=== PATIENT | female | born 1965 | race Caucasian/White ===

== ENCOUNTER 2017-05-23 15:55 | Emergency (ER) | payer OTHER ==
--- NOTE | ~2017-05-23 | CT4 ---
[facility] A Service of [facility] & [facility] RADIOLOGY TEXT RESULTS PATIENT: BARTOLOME FLYNN LOCATION: [facility] : 65 UNIT #: [id number] AGE: [address]: Chad Willett MD SEX: F ORDER DR: [id number] [facility] [address] [place], [place] [address] [id number] MR#: [id number] Acc #: [id number] NAME: BARTOLOME FLYNN : 1965 SEX: F STUDY DATE/TIME: 05/23/2017 18:15 UNIT: [facility] ROOM: STUDY DESCRIPTION: CT Abd and Pelv Wo Cont Attending Physician: Chad Willett M.D. Ordering Physician: Chad Willett M.D. Primary Care Physician: Juanita Barnhart M.D. MEDICAL IMAGING REPORT This report is preliminary unless electronic signature is present EXAM Abdomen and pelvis CT scan without contrast HISTORY Nausea and severe low back pain that wraps around to the anterior abdomen and pelvis on the left side for 3 days. History of irritable bowel syndrome and acid reflux. No history of cancer or trauma. Patient has had appendectomy, hysterectomy, cholecystectomy and left inguinal hernia repair. COMMENTS CT abdomen and pelvis performed without IV or oral contrast media using a urinary tract stone protocol. The lack of intravenous oral contrast media limits evaluation for pathology other than urinary tract calculus disease. There is a previous study from [address] exam was performed with one or more of the following radiation dose reduction techniques: automatic control, adjustment of mA and/or kV according to patient size, and iterative reconstruction. Patchy airspace disease noted at lung bases. The vasculature is crowded and enlarged. Cardiac silhouette is probably mildly enlarged where visualized and this represents a change from the prior study of 02/07/2015 and raises concern for some mild congestive failure or cardiac dysfunction. The airspace disease could simply be atelectasis but a component of patchy pulmonary edema is in the differential and clinical correlation and follow up is recommended. CT ABDOMEN: The noncontrast liver shows diffuse fatty infiltration. The patient is post cholecystectomy. There is some fatty replacement in the pancreas. The spleen, adrenal glands, and left kidney are unremarkable. There is no left-sided hydronephrosis. There is a nonobstructing calculus in the right lower pole kidney about 3-4 mm in dimension. There is no STS. [facility] A Service of [facility] & [facility] RADIOLOGY TEXT RESULTS PATIENT: BARTOLOME FLYNN LOCATION: [facility] : 65 UNIT #: [id number] AGE: [address]: Chad Willett MD SEX: F ORDER DR: right-sided hydronephrosis. No left ureteral calculus or right ureteral calculus is seen. The bladder is decompressed and no bladder calculus is seen. Assessment remainder of the pelvis shows patient post hysterectomy. There are occasional colonic diverticula but there is nothing to suggest diverticulitis. There is some postoperative changes in the left inguinal region consistent with hernia repair history including some dense structures presumably postoperative in origin the appendix is not seen and is surgically absent by history. The small bowel is unremarkable and there is no evidence for obstruction. No free air is identified and no drainable fluid collection is suspected. Mild degenerative changes noted in the spine. IMPRESSION 1. Diffuse fatty infiltration of the liver. 2. Partial demonstration of findings at lung bases raise concern for cardiac dysfunction/mild congestive failure. See discussion above and clinical correlation and follow up is recommended. 3. This patient is post appendectomy, cholecystectomy and hysterectomy and left inguinal hernia repair and there are some densities in the left inguinal region consistent with a hernia repair. 4. There are a few left colon diverticula but there is nothing to suggest diverticulitis. There is no evidence for bowel obstruction. 5. There is a nonobstructing calculus right lower pole kidney. No obstructing calculus is seen and there is no evidence for hydronephrosis. Specifically no left ureteral calculus is seen and no bladder calculus is seen. STAT * RESULT L Dictated by... Judith Pierre M.D. THIS IS AN ELECTRONICALLY VERIFIED REPORT Judith Pierre M.D. at 05/23/2017 10:51 PM SAVANNA/rashmi TD: 05/23/2017 18:54 JOB #: [id number] MEDICAL IMAGING REPORT Page 1 of 1 COPY
[~2017-05-23 15:55] MED LIST: ASPIRIN81 M1 PO; B-12 PO; BACLOFEN10 MG PO; CLINDAMYCIN HC300 MG PO; CYMBALTA PO; DAZIDOX20 MG PO; DIOVAN HCT 320/1 TA2 PO; DIOVAN PO; DIOVAN320 MG PO; EFFEXOR-XR150 MG PO; FLEXERIL PO; FLEXERIL10 M1 PO; GRALISE300 MG PO; LIPITOR20 MG PO; LISINOPRIL20 MG PO; LORTAB 7.5-5001 TAB PO; MACROBID 100 M100 MG PO; MAXALT MLT10 MG/TAB PO; MEDROL DOSEPAK4 MG PO; MEDROL4 MG/DOSE- PO; MIRALAX17 GM PO; NAPROSYN500 MG PO; NEURONTIN300 MG PO; NEURONTIN600 MG PO; NITROFURANTOIN100 M3 PO; NORCO 5/325 TAB1 TAB PO; NORVASC PO; OXYCODONE HCL E15 MG PO; OXYCODONE15 M1 PO; OXYCONTIN30 MG PO; OXYCONTIN40 MG PO; PAMELOR10 M1 PO; PAROXETINE HCL20 MG PO; PERCOCET 10/3251 TAB PO; PERCOCET PO; PHENERGAN PO; PHENERGAN25 MG PO; PREDNISONE50 MG PO; PREVACID PO; PRILOSEC PO; PRILOSEC40 MG PO; PROTONIX PO; RELAFEN500 MG PO; SAVELLA100 MG PO; SAVELLA50 MG PO; SENNA S TABLET1 TAB PO; SIMVASTATIN10 MG PO; TREXIMET 85-5001 TAB PO; TYLOX 5/500 CAP1 CAP PO; ULTRAM PO; VANCOMYCIN HCL1 GM IM; VICOPROFEN 200-1 TAB PO; VITAL-D RX TABL1 TAB PO; VITAMIN B-121000 MC2 PO; VITAMIN B-12500 MCG PO; VITAMIN D2000 UNI1 PO; WELCHOL625 MG PO; ZOFRAN ODT4 MG PO; ZOFRAN PO; ZOFRANODT PO
[2017-05-23 16:30] LABS: URINE SOURCE CLEAN CATCH
[2017-05-23 16:38] LABS: URINE APPEARANCE CLEAR; URINE BILIRUBIN NEG (NEG); URINE BLOOD NEG (NEG); URINE COLOR YELLOW; URINE GLUCOSE NEG (NEG); URINE KETONE NEG (NEG); URINE LEUKOCYTE ESTERASE NEG (NEG); URINE NITRATE NEG (NEG); URINE PROTEIN NEG (NEG); URINE SPECIFIC GRAVITY 1.024 (1.003-1.035); URINE UROBILINOGEN 0.2 MG/DL (NEG)
[2017-05-23 16:48] LABS: CULTURE INDICATED? NO
[2017-05-23 17:28] LABS: BASOPHIL% 0.6 % (0-2.5); EOSINOPHIL# 0.2 X10e3 (0-0.7); HEMATOCRIT 38.3 % (35.0-45.0); HEMOGLOBIN 12.3 gm/dL (12.0-16.0); LYMPHOCYTE# 2.1 X10e3 (1.0-3.5); LYMPHOCYTE% 26.6 % (17.0-45.0); MEAN CORPUSCULAR HEMOGLOBIN 26.9 PG (28-34); MEAN PLATELET VOLUME 7.9 FL (6.5-11.5); MONOCYTE# 0.6 X10e3 (0-1.0); MONOCYTE% 7.3 % (3.0-12.0); NEUTROPHIL# 4.9 X10e3 (1.5-7.1); NEUTROPHIL% 63.5 % (40-75); PLATELET COUNT 277 X10e3 (140-420); RED BLOOD COUNT 4.56 X10e (3.90-5.30); RED CELL DISTRIBUTION WIDTH 14.8 % (11.0-15.5); WHITE BLOOD COUNT 7.7 X10e3 (4.0-10.5)
[2017-05-23 17:45] LABS: DIFF IND NO
[2017-05-23 18:00] LABS: ALBUMIN SERUM 3.2 g/dL (3.5-5.0); ALKALINE PHOSPHATASE 101 U/L (32-92); ALT (SGPT) 24 U/L (10-40); AST (SGOT) 26 U/L (10-42); BILIRUBIN, DIRECT <0.1 mg/dL (0.0-0.2); BILIRUBIN,TOTAL 0.1 mg/dL (0.2-2.0); BLOOD UREA NITROGEN 14 mg/dL (9-23); CALCIUM SERUM 8.2 mg/dL (8.4-10.2); CARBON DIOXIDE 28 mmol/L (22-31); CHLORIDE 101 mmol/L (100-111); CREATININE SERUM 0.7 mg/dL (0.6-1.4); GLOM FILT RATE Estimated 100.3 mL/min (>60); GLUCOSE FASTING 134 mg/dL (70-110); LIPASE 40 U/L (22-51); POTASSIUM 3.8 mmol/L (3.5-5.1); PROTEIN TOTAL SERUM 6.8 g/dL (6.0-8.3); SODIUM 136 mmol/L (135-145)
== END 2017-05-23 19:30 | disposition home or self-care (01) ==
LOC: CED 15:55
DX: M54.5 Low back pain (principal); G89.29 Other chronic pain; I10 Essential (primary) hypertension; G40.909 Epilepsy, unspecified, not intractable, without status epilepticus; M79.7 Fibromyalgia; G43.909 Migraine, unspecified, not intractable, without status migrainosus; F20.9 Schizophrenia, unspecified; F41.9 Anxiety disorder, unspecified; F32.9 Major depressive disorder, single episode, unspecified; Z90.49 Acquired absence of other specified parts of digestive tract; Z90.710 Acquired absence of both cervix and uterus; Z79.899 Other long term (current) drug therapy; Z88.1 Allergy status to other antibiotic agents; Z88.2 Allergy status to sulfonamides; Z88.8 Allergy status to other drugs, medicaments and biological substances
CPT/HCPCS: 36415; 74176; 80048; 80076; 81003; 83690; 85025; 96372; 99284; J1170; J1885